=== PATIENT | female | born 1990 | race Caucasian/White ===

== ENCOUNTER 2016-11-17 13:50 | Emergency (ER) | payer SELFPAY ==
[2016-11-17 14:02] VITALS: BP 111/71
[2016-11-17] MEDS ORDERED: IBUPROFEN 800 MG TABLET PO ONE (16:30)
--- NOTE | 2016-11-17 16:32 | ER Document Report ---
ED Skin Rash/Insect Bite/Abscs - General Chief Complaint: Insect Bite Stated Complaint: LEFT FOOT PAIN, RIGHT ARM PAIN Time Seen by Provider: 11/17/16 16:23 Notes: patient presents with yellow fly bite to right elbow and left foot last evening , admits to swelling and itching, took benadryl and motrin, TRAVEL OUTSIDE OF THE [place] IN LAST 30 DAYS: No - HPI Patient complains to provider of: Insect bite - one on her left foot and another on her right extensor surface or her elbow Onset: Yesterday Quality of pain: Other - itching Skin Character: Blanching, Erythema, Warm. No: Drainage Skin Temperature: Warm Quality of rash: Itchy Identify cause: Yes - yellow fly Exacerbated by: Denies Relieved by: Denies - Related Data Allergies/Adverse Reactions: Penicillins Allergy (Verified 11/17/16 14:01) Past Medical History - Social History Smoking Status: Unknown if Ever Smoked Family History: Reviewed & Not Pertinent Patient has suicidal ideation: No Patient has homicidal ideation: No Renal/ Medical History: Denies: Hx Peritoneal Dialysis Past Surgical History: Reports: Hx Tonsillectomy - Immunizations Hx Diphtheria, Pertussis, Tetanus Vaccination: Yes Review of Systems - Review of Systems Constitutional: No symptoms reported Musculoskeletal: No symptoms reported Skin: See HPI Physical Exam - Vital signs Vitals: Temp Pulse Resp BP Pulse Ox 98.0 F 69 20 111/71 97 11/17/16 14:01 11/17/16 14:01 11/17/16 14:01 11/17/16 14:01 11/17/16 14:01 - General General appearance: Appears well, Alert In distress: None - Cardiovascular Pulses: Normal: Radial, Dorsalis pedis Normal capillary refill: Yes - Extremities General upper extremity: Normal inspection, Nontender, Normal color, Normal ROM , Normal strength, Normal temperature General lower extremity: Normal inspection, Nontender, Normal color, Normal ROM , Normal strength, Normal temperature, Normal weight bearing. No: Perri's sign - Neurological Neuro grossly intact: Yes Motor strength normal: LUE, RUE, LLE, RLE Sensory: Normal - Skin Skin Temperature: Warm Skin Moisture: Dry Skin Color: Normal Skin Turgor: Elastic Skin irregularity: Erythema Location of irregularity: Extremities - left foot and right elbow Character of irregularity: Erythematous Irregularity with: Warmth, Well defined border, Inflammation. negative: Induration Course - Re-evaluation Re-evalutation: 11/17/16 17:56 Patient is a 26-year-old female who presented to emergency department complaining of bug bite. Localized inflammation is noted without any concerns for cellulitis or abscess. Patient instructed on taking Motrin and Benadryl as well as using ice to decrease the amount of inflammation. Patient is agreeable with plan - Vital Signs Vital signs: Temp Pulse Resp BP Pulse Ox 98.0 F 69 20 111/71 97 11/17/16 14:01 11/17/16 14:01 11/17/16 14:01 11/17/16 14:01 11/17/16 14:01 Discharge - Discharge Clinical Impression: Bug bite Condition: Good Disposition: HOME, SELF-CARE Instructions: Insect Bites ([facility]), Use of [id number] Ibuprofen ([facility]), Antihistamines ([facility]), Ice & Elevation ([facility]) Forms: Return to Work Referrals: [facility] [NO LOCAL MD] - Follow up as needed [facility] [Provider Group] - Follow up as needed
== END 2016-11-17 16:32 | disposition home or self-care (01) ==
LOC: ER 13:50
DX: S50.361A Insect bite (nonvenomous) of right elbow, initial encounter (principal); S90.862A Insect bite (nonvenomous), left foot, initial encounter; W57.XXXA Bitten or stung by nonvenomous insect and other nonvenomous arthropods, initial encounter
CPT/HCPCS: 99281